=== PATIENT | female | born 1995 | race Hispanic/Latino ===

== ENCOUNTER 2016-09-28 20:51 | Emergency (ER) | payer OTHER ==
[~2016-09-28] VITALS: Ht 154.9 cm; Wt 63.6 kg
[2016-09-28 20:54] VITALS: BP 126/81; PULSE 112; RESP 24; O2SAT 100
--- NOTE | 2016-09-28 21:15 | ED.REPORT ---
HPI-Trauma Minor / Fall Date of Service September 28, 2016 ED Provider: José Antonio Caldera MD Patient is a 21 year old female who presents to the ED due to a laceration on her nose and lip. Associated symptoms include dizziness, syncope, tunnel vision and headache. She denies shaking, losing consciousness or seizure type activity. The patient reports that around 1930 she began feeling dizzy and face planted into the hard wood floor. She states that she hasn't been drinking a lot of fluids for the past 4 days and had an intense workout today. The patient also reports that she had two beers and a THC soda this evening. She has not had any fainting episodes before. Nursing Notes Stated Complaint: GLF/ FACE LACERATION Chief Complaint: Head, Face, Neck Trauma Nursing Notes Reviewed: Yes Allergies: Coded Allergies: No Known Allergies (Verified Allergy, Unknown, 05/15/14) Miscellaneous Medications ([None]) General Time Seen by MD: 21:10 Chief Complaint Fall Hx Obtained From: Patient Arrived By: Walk-in Onset Occurred: 1 - 4 hours ago Symptom Duration: Since onset Location: Face Context: Immunizations All up to date Recent Healthcare: No recent hospitalization, Recent doctor visit Similar Sx Previous: No Past Medical History Past Medical History none reported Past Surgical History Reports: Tonsillectomy Social History Alcohol Use: "Social" Drug Use: THC Other Social History: Good social support Ambulatory Status Independent Review of Systems Respiratory: Denies: Non-productive cough, Shortness of breath Neurologic: Reports: Dizziness, Headache, Syncope, Vision change (tunnel vision ), Denies: Change LOC, Seizure, Shaking Complete sys rev & neg: except as marked. Physical Exam Initial Vital Signs Vital Signs (First) Date Time Temp Pulse Resp B/P Pulse Ox O2 Delivery O2 Flow Rate FiO2 09/28/16 20:54 36.7 112 24 126/81 100 Room Air Initial VS: Reviewed, Vital signs abnormal General/Constitutional: Awake, Alert, No acute distress Neck: Atraumatic, No midline vertebral tend Neck / Muscle Tenderness: Positive: Paraspinal L... (Mild) limited ear to shoulder movement Head / Eyes: Normocephalic, PERRL, EOMI laceration on lip and across nose ENT: Atraumatic, Airway patent, Mucous membranes moist Respiratory / Chest: Atraumatic, Breath sounds NL, Breath sounds = bilat, No respiratory distress Upper Extremity / MS: Atraumatic, Full range of motion Lower Extremity / Pelvis / MS: Atraumatic, Full range of motion Skin: Color NL, No rash, Warm, Dry Neurologic: Oriented X3, Speech NL, No motor deficits, No sensory deficits Psychiatric: Affect NL, Mood NL Interpretation & Diagnostics Lab Results Interpretation Result Diagram: 09/28/16215409/28/162154 Test 09/28/16 21:55 White Blood Count 8.8th/mm3 (3.8-10.1) Red Blood Count 4.36mil/mm3 (3.90-5.20) Hemoglobin 12.5g/dL (12.0-15.6) Hematocrit 37.5% (35.0-46.0) Mean Corpuscular Volume 86.0fL (81-100) Mean Corpuscular Hemoglobin 28.7pg (27.0-35.0) Mean Corpuscular Hemoglobin Concent 33.3% (32.0-37.0) Red Cell Distribution Width 13.9% (12.3-15.4) Platelet Count 290bil/L (150-400) Neutrophils (%) (Auto) 66.4% (40-74) Lymphocytes (%) (Auto) 23.1% (14-46) Monocytes (%) (Auto) 9.0% (4-12) Eosinophils (%) (Auto) 0.8% (0-5) Basophils (%) (Auto) 0.5% (0-3) Sodium Level 140mEq/L (134-144) Potassium Level 3.9mEq/L (3.5-5.2) Chloride Level 102mEq/L (97-108) Carbon Dioxide Level 25mmol/L (18-29) Blood Urea Nitrogen 10mg/dL (6-20) Creatinine 0.69mg/dL (0.57-1.00) Estimat Glomerular Filtration Rate 154mL/min (>59) Glucose Level 115mg/dL (60-99) Calcium Level 9.1mg/dL (8.5-10.1) Magnesium Level 2.1mg/dL (1.6-2.6) Total Bilirubin 0.2mg/dL (0.0-1.2) Aspartate Amino Transf (AST/SGOT) 32U/L (0-50) Alanine Aminotransferase (ALT/SGPT) 29U/L (0-32) Alkaline Phosphatase 85U/L (25-150) Total Protein 7.0g/dL (6.4-8.4) Albumin 4.2g/dL (3.4-5.0) Lab values outside NL range: no clinical significance. ECG Interpretation ECG Interpretation: sinus tachycardia, rate 104 Time: 22:20 Interpreted by: ED physician X-Ray Interpretation Xray Interpretation: NASAL BONES X-RAY: IMPRESSION: No fracture. Dictated by: Augusto Wyatt M.D. on 09/28/2016 at 21:44 Approved by: Augusto Wyatt M.D. on 09/28/2016 at 21:44 Interpretation / Wet Read by: Wet read ED physician (fracture ), Interpret - Radiologist (no fracture) Procedures Laceration Management Time: 22:41 Procedure Performed by: ED physician Consent / Setup / Site Prep: Consent from patient, Time-out performed, Hand hygiene observed, Stand sterile technique Local Anesthesia: Lidocaine w epi 1%, Other (Lidocaine with epi and tetracaine) Wound Preparation: Shurclens Debridement: None Repair Skin: Nylon # Sutures - Skin: 3 Suture Technique: Simple Post-Procedure / Complications: No complications, Condition improved, Tolerated procedure well, Patient stable Re-Eval/Medical Decision Med Decision/Clinical Course 21-year-old female who had a syncopal episode secondary to dehydration and alcohol ingestion. She fell forward and injured her nose and lips. X-ray shows a nondisplaced bony fracture of the nose. The laceration was cleansed and repaired and she will be put on Augmentin due to the open fracture. Re-Evaluation/Progress #1: Time of Eval: 21:58 Re-Evaluation/Progress Note: Discussed results and plan for laceration management. The patient understands and agrees to the procedure. All questions were addressed. Re-Evaluation/Progress #2: Time of Eval: 22:57 Patient Status: Condition improved, Mild relief Re-Evaluation/Progress Note: Discussed plan for discharge and follow up directions. The patient understands and agrees to the plan for discharge. All questions were addressed. Counseled Regarding: Diagnosis, Lab results, Need for follow-up, When/why to return to ED Discharge & Departure Impression: Primary Impression: Nasal fracture Encounter type: initial encounter Fracture type: open Qualified Code: S02.2XXB - Fracture of nasal bones, initial encounter for open fracture Additional Impressions: Nasal laceration Encounter type: initial encounter Qualified Code: S01.21XA - Laceration without foreign body of nose, initial encounter Lip laceration Encounter type: initial encounter Qualified Code: S01.511A - Laceration without foreign body of lip, initial encounter Fall from ground level Syncope Syncope type: unspecified Qualified Code: R55 - Syncope and collapse Dehydration Disposition: Home Discharge Condition All VS Reviewed: Yes Condition: Stable Patient Instructions: Laceration (GEN) Additional Instructions: There is a nondisplaced nasal fracture with overlying laceration which was sutured. Your fall was most likely secondary to dehydration coupled with the vasodilation of alcohol.drink plenty of fluids. Take Tylenol as needed for pain. Follow up with your primary care physician or return to the emergency department in 5-7 days to have your sutures removed. Please return to the emergency department sooner if you develop any new or worsening symptoms including another episode of fainting or increasing facial pain. Referrals: Owen Shoemaker MD (PCP) Wolf[facility] Attestation Portions of this note were transcribed by Eve Delacruz I, Dr. Caldera personally performed the history, physical exam and medical decision-making; I reviewed and confirmed the accuracy of the information in the transcribed note. Signed by: Sushant Kent, 09/28/16 and [id number] copies to: Owen Shoemaker MD, Howard L MD September 28, 2016 21:15 Autumn Delacruz September 28, 2016 21:31
--- NOTE | 2016-09-28 21:46 | DRSVH ---
PROCEDURE: X-RAY NASAL BONES, MINIMUM THREE VIEWS ([id number]) INDICATIONS: INJURY TECHNIQUE: 3 views of the nasal bones acquired. COMPARISON: None. FINDINGS: Bones: No fractures or dislocations. Nasal septum is midline. Normal nasociliary nerve grooves are noted. Soft tissues: No suspicious soft tissue calcifications. IMPRESSION: No fracture. Dictated by: Augusto Wyatt M.D. on 09/28/2016 at 21:44 Approved by: Augusto Wyatt M.D. on 09/28/2016 at 21:44
[2016-09-28] MEDS ORDERED: Amoxicillin-Clav 875-125 mg Tablet PO ONE (22:15)
[2016-09-28] MEDS ORDERED: Lidocaine-Epi-Tetracaine Solution 3 mL Syringe TOPICAL ONE (22:15)
[2016-09-28 22:23] LABS: BASOPHILS % (AUTO) 0.5 % (0-3); EOSINOPHILS % (AUTO) 0.8 % (0-5); Mean Corpuscular Hemoglobin 28.7 pg (27.0-35.0); NEUTROPHILS % (AUTO) 66.4 % (40-74); Platelet Count 290 bil/L (150-400)
[2016-09-28 22:28] VITALS: BP_SYST 118; BP_SYST 121; BP_DIAS 65; BP_DIAS 67; PULSE 105; PULSE 118; RESP 14
[2016-09-28 22:29] VITALS: BP 105/65; PULSE 106; RESP 14
[2016-09-28] MEDS ORDERED: Lidocaine 1%-Epi 1:100,000 20 mL Inj ONE (22:43)
[2016-09-28 22:45] LABS: Magnesium 2.1 mg/dL (1.6-2.6)
[2016-09-28 23:40] VITALS: BP 107/63; PULSE 97; RESP 16; O2SAT 100
== END 2016-09-28 23:44 | disposition home or self-care (01) ==
LOC: SED 20:51
DX: S02.2XXB Fracture of nasal bones, initial encounter for open fracture (principal); S01.21XA Laceration without foreign body of nose, initial encounter; S01.511A Laceration without foreign body of lip, initial encounter; R55 Syncope and collapse; E86.0 Dehydration; W01.198A Fall on same level from slipping, tripping and stumbling with subsequent striking against other object, initial encounter; Y93.89 Activity, other specified; Y92.9 Unspecified place or not applicable; Y99.9 Unspecified external cause status